=== PATIENT | male | born 1990 | race Caucasian/White ===

== ENCOUNTER 2023-09-14 18:01 | Emergency (ER) | payer SELFPAY ==
[2023-09-14 18:12] VITALS: RESP 18; TEMP 99.2; BMI 27.4
[2023-09-14] MEDS: SODIUM CHLORIDE 0.9% 500 ML INFUS.BAG IV ONE ×2 (19:45→21:25)
[2023-09-14] MEDS: DEXAMETHASONE SOD PHOSPHATE 10 MG/1 ML VIAL IVPUSH ONE (19:45)
[2023-09-14] MEDS: ONDANSETRON 4 MG/2 ML VIAL IVPUSH ONE (19:45)
[2023-09-14] MEDS ORDERED: KETOROLAC TROMETHAMINE 30 MG/1 ML VIAL ONE (19:45)
[2023-09-14] MEDS: KETOROLAC TROMETHAMINE 30 MG/1 ML VIAL IVPUSH ONE (19:45)
[2023-09-14] MEDS ORDERED: DEXAMETHASONE SOD PHOSPHATE 10 MG/1 ML VIAL ONE (19:45)
[2023-09-14] MEDS ORDERED: ONDANSETRON 4 MG/2 ML VIAL ONE (19:45)
[2023-09-14 20:19] LABS: BASO % 0.2 % (0-2.0); EOS % 0.1 % (0-4.5); HEMATOCRIT 47.5 % (35.4-49); HEMOGLOBIN 16.4 GM/dL (11.7-16.9); LYMPH % 7.3 % (8-40); MCH 32.8 pg (25.7-33.7); MCHC 34.4 g/dl (32.0-35.9); MEAN CELL VOLUME 95.3 fl (80-96); MEAN PLT VOLUME 7.3 fl (7.5-11.1); MONO % 6.9 % (3.8-10.2); NEUT % 85.5 % (42.8-82.8); PLATELET COUNT 277 10^3/uL (134-434); RBC 4.99 M/mm3 (4.00-5.60); RDW 14.3 % (11.9-15.9); WHITE BLOOD COUNT 19.6 K/mm3 (4.0-10.0)
[2023-09-14 20:27] LABS: EPI CELLS 6 /uL (0-25.1); HYALINE CASTS 1 /uL (0-3.1); PH,URINE 5.5 (5.0-8.0); URINE APPEARANCE CLEAR; URINE BACTERIA 1 /uL (0-1359); URINE BILIRUBIN 2+ (NEGATIVE); URINE COLOR DK YELLOW; URINE GLUCOSE (UA) NEGATIVE (NEGATIVE); URINE KETONE 4+ (NEGATIVE); URINE LEUK ESTERASE TRACE (NEGATIVE); URINE NITRITE NEGATIVE (NEGATIVE); URINE PROTEIN 2+ (NEGATIVE); URINE WBC 15 /uL (0-25.8)
[2023-09-14 20:33] LABS: POTASSIUM 3.7 mmol/L (3.5-5.1)
[2023-09-14 20:36] LABS: CALCIUM 9.4 mg/dL (8.5-10.1)
[2023-09-14 20:40] LABS: CREATININE 1.2 mg/dL (0.55-1.3)
[2023-09-14 20:42] LABS: BILIRUBIN,TOTAL 1.3 mg/dL (0.2-1); TOT PROT 8.5 g/dl (6.4-8.2)
[2023-09-14 23:27] VITALS: BP 115/66; PULSE 74
[2023-09-15 00:33] LABS: HEMATOCRIT 42.9 % (35.4-49); HEMOGLOBIN 14.8 GM/dL (11.7-16.9); MCH 32.7 pg (25.7-33.7); MCHC 34.5 g/dl (32.0-35.9); MEAN CELL VOLUME 94.9 fl (80-96); MEAN PLT VOLUME 7.4 fl (7.5-11.1); PLATELET COUNT 253 10^3/uL (134-434); RBC 4.52 M/mm3 (4.00-5.60); RDW 14.6 % (11.9-15.9); WHITE BLOOD COUNT 18.4 K/mm3 (4.0-10.0)
[2023-09-15] MEDS ORDERED: IBUPROFEN 400 MG TABLET (FP) PO ONE (02:00)
[2023-09-15] MEDS: IBUPROFEN 600 MG TABLET (FP) PO ONE (02:05)
[2023-09-15] MEDS: PENICILLIN V POTASSIUM 500 MG TABLET PO ONE (02:14)
[2023-09-15 03:10] LABS: ANISOCYTOSIS 2+; MACROCYTOSIS 1+
== END 2023-09-15 02:17 | disposition home or self-care (01) ==
LOC: JER 18:01
PROC: 3E033GC Introduction of Other Therapeutic Substance into Peripheral Vein, Percutaneous Approach (ICD-10-PCS; principal; 2023-09-14)
PROC: 3E0333Z Introduction of Anti-inflammatory into Peripheral Vein, Percutaneous Approach (ICD-10-PCS; 2023-09-14)
PROC: 3E033GC Introduction of Other Therapeutic Substance into Peripheral Vein, Percutaneous Approach (ICD-10-PCS; 2023-09-14)
DX: E86.0 Dehydration (principal); R19.7 Diarrhea, unspecified; R11.2 Nausea with vomiting, unspecified; J02.9 Acute pharyngitis, unspecified; R50.9 Fever, unspecified; M79.10 Myalgia, unspecified site; R30.9 Painful micturition, unspecified
CPT/HCPCS: 36415; 70491-TC; 74177-TC; 80053; 81003; 85025; 86308; 87086; 87651; 99285-25; J1100; Q9967

== ENCOUNTER 2023-09-28 13:53 | Emergency (ER) | payer SELFPAY ==
[2023-09-28 14:04] VITALS: BMI 26.6
[2023-09-28] MEDS ORDERED: KETOROLAC TROMETHAMINE 30 MG/1 ML VIAL ONE (15:03)
[2023-09-28] MEDS: SODIUM CHLORIDE 0.9% 500 ML INFUS.BAG IV ONE (15:17)
[2023-09-28] MEDS: KETOROLAC TROMETHAMINE 30 MG/1 ML VIAL IVPUSH ONE (15:17)
[2023-09-28 15:28] LABS: BASO % 0.4 % (0-2.0); EOS % 0.1 % (0-4.5); HEMATOCRIT 40.6 % (35.4-49); HEMOGLOBIN 13.5 GM/dL (11.7-16.9); LYMPH % 20.1 % (8-40); MCH 31.8 pg (25.7-33.7); MCHC 33.3 g/dl (32.0-35.9); MEAN CELL VOLUME 95.6 fl (80-96); MEAN PLT VOLUME 7.6 fl (7.5-11.1); MONO % 5.7 % (3.8-10.2); NEUT % 73.7 % (42.8-82.8); PLATELET COUNT 296 10^3/uL (134-434); RBC 4.24 M/mm3 (4.00-5.60); RDW 14.7 % (11.9-15.9); WHITE BLOOD COUNT 15.1 K/mm3 (4.0-10.0)
[2023-09-28 15:29] LABS: EPI CELLS 7 /uL (0-25.1); HYALINE CASTS 2 /uL (0-3.1); PH,URINE 7.5 (5.0-8.0); URINE APPEARANCE CLEAR; URINE BACTERIA 2 /uL (0-1359); URINE BILIRUBIN NEGATIVE (NEGATIVE); URINE COLOR YELLOW; URINE GLUCOSE (UA) NEGATIVE (NEGATIVE); URINE KETONE TRACE (NEGATIVE); URINE LEUK ESTERASE NEGATIVE (NEGATIVE); URINE NITRITE NEGATIVE (NEGATIVE); URINE PROTEIN NEGATIVE (NEGATIVE); URINE WBC 20 /uL (0-25.8)
[2023-09-28 15:31] LABS: URINE RBC 448.5 /uL (0-23.9)
[2023-09-28 15:32] LABS: YEAST NEGATIVE (NEGATIVE)
[2023-09-28 15:48] LABS: POTASSIUM 4.4 mmol/L (3.5-5.1)
[2023-09-28 15:52] LABS: ALBUMIN 3.8 g/dl (3.4-5.0); CALCIUM 8.8 mg/dL (8.5-10.1)
[2023-09-28 15:55] LABS: CREATININE 1.1 mg/dL (0.55-1.3)
[2023-09-28 15:58] LABS: TOT PROT 7.2 g/dl (6.4-8.2)
[2023-09-28] MEDS ORDERED: TAMSULOSIN HCL 0.4 MG CAP ONE (17:24)
[2023-09-28 17:48] VITALS: BP 126/78; PULSE 90; RESP 14; TEMP 97.8
[2023-09-28] MEDS: TAMSULOSIN HCL 0.4 MG CAP PO ONE (17:49)
== END 2023-09-28 17:51 | disposition home or self-care (01) ==
LOC: JER 13:53
PROC: 3E0333Z Introduction of Anti-inflammatory into Peripheral Vein, Percutaneous Approach (ICD-10-PCS; principal; 2023-09-28)
DX: N20.2 Calculus of kidney with calculus of ureter (principal); R10.9 Unspecified abdominal pain
CPT/HCPCS: 36415; 74176-TC; 80053; 81003; 85025; 87086; 99284-25